=== PATIENT | male | born 1955 | race Caucasian/White ===

== ENCOUNTER 2021-07-22 00:07 | Inpatient (IN) | payer MEDICARE, OTHER ==
[~2021-07-22] VITALS: Ht 182.9 cm; Wt 129.7 kg
[~2021-07-22 00:07] MED LIST: ALBU6.7H9 IH; AMLO5TAB4 PO; ATOR40TA PO; IPRA3AMP23 IH; LEVO500T23 PO; LISI20TA30 PO; MOME13HF2 IH; MONT10TA22 PO; PRED20TA PO
--- NOTE | 2021-07-22 00:15 | NUR ---
BIBRA FROM HOME C/O SOB +WHEEZING +ETOH 1 BREATHING TX DONE. AT TRIAGE SATTING AT 99%. PATIENT ALERT AND ORIENTED X3. AMBULATORY IN BED 06 ON MONITOR AND POX AWAITING MD MCCURDY
[2021-07-22] MEDS ORDERED: VANCOMYCIN 1 GM in IV D5W 250 ML IV ONE (00:30)
[2021-07-22] MEDS ORDERED: methylPREDNISolone SOD SUCC 125 MG/2ML VIAL IV ONE (00:30)
[2021-07-22 00:52] LABS: BASOPHILS # (AUTO) 0.1 K/uL (0.0-0.2); BASOPHILS % (AUTO) 1.4 % (0.0-2.0); EOSINOPHILS % (AUTO) 5.3 % (0.0-6.0); HEMATOCRIT 35 % (39-51); HEMOGLOBIN 12.1 g/dL (13.5-17.5); LYMPHOCYTES # (AUTO) 1.4 K/uL (0.8-4.8); LYMPHOCYTES % (AUTO) 37.3 % (20.0-44.0); MEAN CORPUSCULAR HGB CONC 35 g/dl (31.0-36.0); MEAN CORPUSCULAR VOLUME 97 fL (80-96); MONOCYTES # (AUTO) 0.4 K/uL (0.1-1.30); MONOCYTES % (AUTO) 10.6 % (2.0-12.0); NEUTROPHILS # (AUTO) 1.7 K/uL (1.8-8.9); NEUTROPHILS % (AUTO) 45.4 % (43.0-81.0); PLATELET COUNT (AUTO) 168 K/uL (150-450); RED BLOOD CELL COUNT(AUTO) 3.56 MIL/uL (4.5-6.0); WHITE BLOOD COUNT (AUTO) 3.7 K/uL (4.3-11.0)
[2021-07-22] MEDS ORDERED: methylPREDNISolone SOD SUCC 125 MG/2ML VIAL ONE (00:53)
[2021-07-22] MEDS ORDERED: VANCOMYCIN 1 GM VIAL ONE (00:53)
--- NOTE | 2021-07-22 01:17 | NUR ---
COVID SWAB SENT TO LAB
[2021-07-22 01:18] LABS: ALANINE AMINOTRANSFERASE 21 U/L (12-78); ALBUMIN 3.7 g/dL (3.4-5.0); ALKALINE PHOSPHATASE 50 U/L (46-116); BILIRUBIN,DIRECT 0.1 mg/dL (0.0-0.2); BILIRUBIN,TOTAL 0.4 mg/dL (0.2-1.0); CALCIUM, SERUM 8.4 mg/dL (8.5-10.1); CARBON DIOXIDE 24 mmol/L (21-32); CHLORIDE 86 mmol/L (98-107); CREATININE 0.8 mg/dL (0.6-1.3); GLUCOSE 97 mg/dL (74-106); POTASSIUM 4.2 mmol/L (3.5-5.1); TOTAL PROTEIN, SERUM 6.9 g/dL (6.4-8.2); UREA NITROGEN, BLOOD 6 mg/dL (7-18)
[2021-07-22 01:21] LABS: SODIUM SERUM 120 mmol/L (136-145)
--- NOTE | 2021-07-22 01:21 | NUR ---
CRITICAL LAB Na 120, LA 2.4
[2021-07-22 01:43] LABS: ASPARTATE AMINOTRANSFERASE 28 U/L (15-37)
--- NOTE | 2021-07-22 01:59 | NUR ---
COVID PCR SWAB COLLECTED AND SENT TO LAB
[2021-07-22] MEDS ORDERED: CEFTRIAXONE 1GM BAG (ER ONLY) 1 GM/50 ML PIGGYBACK IV ONE (02:00)
[2021-07-22] MEDS ORDERED: AZITHROMYCIN 500 MG in IV D5W 250 ML IV ONE (02:00)
[2021-07-22] MEDS ORDERED: AZITHROMYCIN 500 MG VIAL ONE (02:14)
[2021-07-22] MEDS ORDERED: CEFTRIAXONE 1GM BAG (ER ONLY) 50 ML IV ONE (02:14)
[2021-07-22] MEDS ORDERED: KETOROLAC TROMETHAMINE INJ 30 MG/ML VIAL ONE (03:26)
[2021-07-22] MEDS ORDERED: KETOROLAC TROMETHAMINE INJ 30 MG/ML VIAL IV ONE (03:30)
--- NOTE | 2021-07-22 04:08 | NUR ---
DR. VILLALOBOS ON PHONE CALL WITH DR. MASTERSON REGARDING ADMISSION
--- NOTE | 2021-07-22 04:10 | NUR ---
LACTIC ACID 2.5
--- NOTE | 2021-07-22 04:21 | NUR ---
URINE COLLECTED SENT TO LAB
[2021-07-22 04:51] LABS: BILIRUBIN,URINE NEGATIVE (NEGATIVE); LEUKOCYTE ESTERASE ,URINE NEGATIVE (NEGATIVE); NITRITE, URINE NEGATIVE (NEGATIVE); PROTEIN,URINE NEGATIVE (NEGATIVE); UGLUCOSE NEGATIVE (NEGATIVE); UROBILINOGEN,URINE 0.2 EU/dL (0.2)
[2021-07-22 04:53] LABS: COLOR,URINE LIGHT YELLOW (YELLOW)
[2021-07-22] MEDS ORDERED: IPRATROPIUM NEB FS 0.5 MG/2.5 ML AMPUL.NEB NEB SCH (05:00)
[2021-07-22] MEDS ORDERED: MAGNESIUM HYDROXIDE 30 ML UDC PO PRN (05:00)
[2021-07-22] MEDS ORDERED: MAG HYDROX/AL HYDROX/SIMETH 30 ML UDC PO PRN (05:00)
[2021-07-22] MEDS ORDERED: ONDANSETRON HCL/PF 4 MG/2 ML VIAL IVP PRN (05:00)
[2021-07-22] MEDS ORDERED: Z GUARD REMEDY 4 OZ OINT TP PRN (05:00)
--- NOTE | 2021-07-22 05:12 | NUR ---
REPORT GIVEN TO IFRAH WALTER
--- NOTE | 2021-07-22 06:20 | NUR ---
PATIENT TRANSFERRED UNDER ACLS
--- NOTE | 2021-07-22 06:35 | NUR ---
RN NOTE RECEIVED CARE OF PATIENT FROM ER NURSE, PATIENT A/O X4, ABLE TO VERBALIZE NEEDS. PATIENT ON O2 THERAPY VIA NC AT 5L/MIN, O2 SAT 98%, NO SOB NOTED, BREATHING EVEN AND UNLABORED. PATIENT ON TELE MONITOR SHOWING SINUS TACH WITH HR OF 104, NO DISTRESS NOTED. PATIENT NOTED WITH L AC# 20, PATENT AND FLUSHING WELL. PATIENT NEEDS ATTENDED TO. NO SIGNIFICANT FINDINGS UPON INITIAL NURSING ASSESSMENTS. SAFETY MEASURES IMPLEMENTED PER HOSPITAL PROTOCOLS. WILL CONTINUE TO MONITOR PATIENT.
--- NOTE | 2021-07-22 07:30 | NUR ---
RN OPENING NOTE PATIENT RECEIVED IN BED, AWAKE, A&OX4. PATIENT ON 6L O2 NC WITH SOME LABORED BREATHING AND AUDIBLE WHEEZING. RIGHT AC SL IV IN PLACE, PATENT AND FLUSHING. PATIENT DOES NOT REPORT NO CHEST PAIN OR DISCOMFORT. NO SIGNS OF ACUTE DISTRESS NOTED AT THIS TIME. BED LOCKED AND IN LOWEST POSITION, CALL LIGHT WITHIN REACH, 2 SIDE RAILS UP. WILL CONTINUE TO MONITOR.
[2021-07-22 08:00] VITALS: BP 133/91
[2021-07-22] MEDS: LISINOPRIL (20MG) 20 MG TABLET PO SCH (08:18)
[2021-07-22] MEDS: ALBUTEROL FS 2.5 MG/3 ML VIAL.NEB NEB SCH ×5 (08:18→23:16)
[2021-07-22] MEDS: IPRATROPIUM NEB FS 0.5 MG/2.5 ML AMPUL.NEB NEB SCH ×5 (08:18→23:16)
[2021-07-22] MEDS: AMLODIPINE BESYLATE 5 MG TABLET PO SCH (08:18)
[2021-07-22] MEDS ORDERED: FUROSEMIDE 40 MG/4 ML VIAL IV SCH (10:30)
[2021-07-22] MEDS: ACETAMINOPHEN 325 MG TABLET PO PRN ×2 (10:46→17:16)
[2021-07-22] MEDS: methylPREDNISolone SOD SUCC 40 MG/ML VIAL IV SCH ×3 (11:35→23:57)
[2021-07-22] MEDS: VANCOMYCIN 1.5 GM in IV D5W 500ml IV SCH ×2 (11:35→22:23)
[2021-07-22 12:00] VITALS: BP 134/78
[2021-07-22 12:26] LABS: CALCIUM, SERUM 9.2 mg/dL (8.5-10.1); CREATININE 1.1 mg/dL (0.6-1.3); POTASSIUM 4.8 mmol/L (3.5-5.1)
--- NOTE | 2021-07-22 12:46 | NUR ---
WOUND CARE CONSULT: REVIEWED CHART, NURSING DOCUMENTATION AND PHOTOS WHICH INDICATE DRY LOWER EXTREMITY WOUNDS WITH REDNESS AND SWELLING,PRESENT ON ADMISSION. DR MARTINEZ NOTIFIED OF DPM CONSULT. MD IN AGREEMENT WITH PLAN OF CARE. CURRENT YINKA SCORE IS 18.
[2021-07-22] MEDS: IV D5/ 0.9% NACL 1,000 ML IV PRN (14:04)
[2021-07-22 14:49] LABS: CREATININE 1.2 mg/dL (0.6-1.3); POTASSIUM 4.4 mmol/L (3.5-5.1)
[2021-07-22 16:00] VITALS: BP 118/77
--- NOTE | 2021-07-22 18:54 | NUR ---
RN CLOSING NOTE PATIENT REMAINS IN BED, AWAKE, A&OX4. PATIENT ON 6L O2 NC WITH SOME LABORED BREATHING AND AUDIBLE WHEEZING. RIGHT AC SL IV IN PLACE RUNNING FLUID ORDERED, PATENT AND FLUSHING. PATIENT DOES NOT REPORT NO CHEST PAIN OR DISCOMFORT. NO SIGNS OF ACUTE DISTRESS NOTED AT THIS TIME. ALL NEEDS ATTENDED DURING SHIFT. BED LOCKED AND IN LOWEST POSITION, CALL LIGHT WITHIN REACH, 2 SIDE RAILS UP. WILL ENDORSE TO SERVICE STATION CONSOLE OPERATOR NURSE.
[2021-07-22] MEDS ORDERED: LORAZEPAM 1 MG TABLET PO PRN (19:00)
--- NOTE | 2021-07-22 19:15 | NUR ---
RN OPENING NOTE RECEIVED CARE OF PATIENT WHILE PATIENT IN BED, A/O X4, ABLE TO VERBALIZE NEEDS. PATIENT EXPRESSES NO DISCOMFORT OR PAIN AT THIS TIME. PATIENT ON O2 THERAPY VIA NC AT 3 L/MIN, MINOR LABORED BREATHING NOTED, BREATHING EVENLY, AUDIBLE WHEEZING NOTED, O2 SAT 92%. PATIENT ON TELE MONITOR SHOWING SINUS TACH WITH HR OF 105, NO DISTRESS NOTED. RIGHT AC SL IV IN PLACE RUNNING FLUID ORDERED, PATENT AND FLUSHING. NO SIGNIFICANT FINDINGS UPON INITIAL NURSING ASSESSMENTS. SAFETY MEASURES IN PLACE ACCORDING TO HOSPITAL PROTOCOLS, BED LOCKED AND IN LOWEST POSITION, CALL LIGHT WITHIN REACH, 2 SIDE RAILS UP, BED ALARM ON. WILL CONTINUE TO MONITOR PATIENT AND WILL CARRY OUT ALL MD ORDERS.
--- NOTE | 2021-07-22 19:20 | NUR ---
RN NOTE RESPIRATORY THERAPIST AT BESIDE FOR PATIENT'S BREATHING TREATMENT. PATIENT TOLERATING TREATMENT WELL. WILL CONTINUE TO MONITOR.
[2021-07-22] MEDS ORDERED: LORAZEPAM 0.5 MG TABLET PO PRN (19:30)
[2021-07-22 20:00] VITALS: BP 113/64
[2021-07-22] MEDS: ATORVASTATIN 40 MG TABLET PO SCH (22:21)
[2021-07-23] VITALS: BP 111/66
[2021-07-23] MEDS: ZOLPIDEM TARTRATE 5 MG TABLET PO PRN ×2 (01:26→23:17)
[2021-07-23] MEDS: CEFTRIAXONE 1 G in IV D5W 50 ML IV SCH (01:26)
[2021-07-23] MEDS: IV D5/ 0.9% NACL 1,000 ML IV PRN ×2 (02:20→18:25)
[2021-07-23] MEDS: ALBUTEROL FS 2.5 MG/3 ML VIAL.NEB NEB SCH ×6 (03:10→23:30)
[2021-07-23] MEDS: IPRATROPIUM NEB FS 0.5 MG/2.5 ML AMPUL.NEB NEB SCH ×6 (03:10→23:30)
[2021-07-23 04:00] VITALS: BP 128/79
[2021-07-23] MEDS: methylPREDNISolone SOD SUCC 40 MG/ML VIAL IV SCH ×4 (05:39→22:33)
--- NOTE | 2021-07-23 06:26 | NUR ---
RN CLOSING NOTES WILL ENDORSE CARE OF PATIENT WHILE PATIENT IN BED, SLEEPING, WAKES TO NAME. A/O X4. ALL PATIENT NEEDS MET THROUGHOUT SHIFT. NO SIGNIFICANT FINDINGS UPON ALL NURSING ASSESSMENTS. ALL DUE MEDS GIVEN. SAFETY PRECAUTIONS IMPLEMENTED PER HOSPITAL PROTOCOLS. WILL ENDORSE TO AM NURSE FOR KULDEEP.
[2021-07-23 07:14] LABS: BASOPHILS % (AUTO) 0.1 % (0.0-2.0); HEMATOCRIT 37 % (39-51); HEMOGLOBIN 12.9 g/dL (13.5-17.5); LYMPHOCYTES # (AUTO) 0.3 K/uL (0.8-4.8); LYMPHOCYTES % (AUTO) 5.3 % (20.0-44.0); MEAN CORPUSCULAR HGB CONC 35 g/dl (31.0-36.0); MEAN CORPUSCULAR VOLUME 98 fL (80-96); MONOCYTES # (AUTO) 0.3 K/uL (0.1-1.30); MONOCYTES % (AUTO) 4.4 % (2.0-12.0); NEUTROPHILS # (AUTO) 5.8 K/uL (1.8-8.9); NEUTROPHILS % (AUTO) 90.2 % (43.0-81.0); PLATELET COUNT (AUTO) 184 K/uL (150-450); RED BLOOD CELL COUNT(AUTO) 3.74 MIL/uL (4.5-6.0); WHITE BLOOD COUNT (AUTO) 6.4 K/uL (4.3-11.0)
--- NOTE | 2021-07-23 07:24 | NUR ---
RN OPENING NOTE PATIENT RECEIVED IN BED, SLEEPING. PATIENT ON 3L O2 NC WITH NO SIGNS OF LABORED BREATHING AT THIS TIME. LEFT AC 20G IV IN PLACE RUNNING D5NS AT 80 CC/HR. NO SIGNS OF ACUTE DISTRESS NOTED AT THIS TIME. BED LOCKED AND IN LOWEST POSITION, CALL LIGHT WITHIN REACH, 3 SIDE RAILS UP. WILL CONTINUE TO MONITOR.
[2021-07-23 07:39] LABS: CALCIUM, SERUM 9.1 mg/dL (8.5-10.1); CREATININE 0.8 mg/dL (0.6-1.3); PHOSPHORUS 3.2 mg/dL (2.5-4.9); POTASSIUM 4.1 mmol/L (3.5-5.1)
[2021-07-23 08:00] VITALS: BP 144/77
[2021-07-23] MEDS: AMLODIPINE BESYLATE 5 MG TABLET PO SCH (08:54)
[2021-07-23] MEDS: LISINOPRIL (20MG) 20 MG TABLET PO SCH (08:54)
[2021-07-23] MEDS: ACETAMINOPHEN 325 MG TABLET PO PRN ×2 (08:57→18:30)
[2021-07-23] MEDS ORDERED: methylPREDNISolone SOD SUCC 40 MG/ML VIAL IV SCH (09:00)
[2021-07-23] MEDS ORDERED: AZITHROMYCIN 250 MG TABLET PO SCH (09:00)
[2021-07-23] MEDS: VANCOMYCIN 1.5 GM in IV D5W 500ml IV SCH ×2 (11:25→22:32)
[2021-07-23 12:00] VITALS: BP 108/59
[2021-07-23 16:00] VITALS: BP 149/75
[2021-07-23 20:00] VITALS: BP 145/76
[2021-07-23] MEDS: ATORVASTATIN 40 MG TABLET PO SCH (22:33)
[2021-07-24] MEDS: IPRATROPIUM NEB FS 0.5 MG/2.5 ML AMPUL.NEB NEB SCH ×3 (03:18→11:30)
[2021-07-24] MEDS: ALBUTEROL FS 2.5 MG/3 ML VIAL.NEB NEB SCH ×3 (03:19→11:30)
[2021-07-24] MEDS: CEFTRIAXONE 1 G in IV D5W 50 ML IV SCH (03:50)
[2021-07-24 04:00] VITALS: BP 144/84
[2021-07-24] MEDS ORDERED: methylPREDNISolone SOD SUCC 40 MG/ML VIAL ONE (05:56)
[2021-07-24] MEDS: IV D5/ 0.9% NACL 1,000 ML IV PRN (06:18)
[2021-07-24] MEDS: methylPREDNISolone SOD SUCC 40 MG/ML VIAL IV SCH (06:19)
--- NOTE | 2021-07-24 07:21 | NUR ---
RN notes Alert and oriented, verbally able to communicate needs. In bed resting comfortably with no distress noted. No complaint of pain or discomfort. Ambulatory with bathroom privilege. Vital signs wnl. No significant change of condition. Needs attended. Kept clean and dry. Will endorse to next shift for continuity of care.
--- NOTE | 2021-07-24 07:42 | NUR ---
MS RN OPENING NOTE PATIENT SLEEPING IN BED, AROUSABLE BY NAME TO A/O X 1. TOLERATING WELL ON 3 LPM O2 VIA CANNULA WITH NO S/S OF RESPIRATORY DISTRESS. L AC #20 INTACT, CLEAN, AND FLUSHING WELL WITH D5 1/2 NS @ 80 ML/HR. NO PAIN OR DISCOMFORT NOTED AT THIS TIME. SAFETY MEASURES IN PLACE: BED IN LOWEST LOCKED POSITION, SIDE RAILS UP X 2, CALL LIGHT WITHIN REACH. WILL CONTINUE TO MONITOR.
[2021-07-24 07:47] LABS: CALCIUM, SERUM 8.6 mg/dL (8.5-10.1); CREATININE 0.8 mg/dL (0.6-1.3)
[2021-07-24] MEDS ORDERED: PRED50TA PO (08:16)
[2021-07-24] MEDS ORDERED: AZIT250T PO (08:16)
[2021-07-24] MEDS ORDERED: CEPH500C2 PO (08:20)
[2021-07-24] MEDS: AMLODIPINE BESYLATE 5 MG TABLET PO SCH (08:42)
[2021-07-24 08:43] VITALS: BP 160/85
[2021-07-24] MEDS: LISINOPRIL (20MG) 20 MG TABLET PO SCH (08:43)
[2021-07-24] MEDS ORDERED: VITAMINS A AND D 56.7 GM TUBE TP SCH (09:00)
--- NOTE | 2021-07-24 09:47 | NUR ---
PATIENT WERE FOUND ON ROOM AIR BEFORE TREATMENT. I CHECKED WITH RN AND WAS INFORMED THAT PATIENT WAS ON 3 L O2. PATIENT WERE PLACED BACK ON 3 L O2 IN STABLE STATE AND ALERT AFTER TREATMENT. Addendum: 07/24/21 at 0951 by VISHAL BOTELLO RT Amended: Links added.
[2021-07-24] MEDS: VANCOMYCIN 1.5 GM in IV D5W 500ml IV SCH ×2 (10:47→11:00)
--- NOTE | 2021-07-24 11:30 | NUR ---
MS OYSTER GRADER NOTE PATIENT MADE AWARE OF MD DISCHARGE INSTRUCTIONS, VERBALIZED UNDERSTANDING AND SIGNED ORDERS SHEET. PATIENT CONFIRMED POSSESSION OF ALL BELONGINGS VERBALLY AND SIGNED BELONGINGS SHEET. VITAL SIGNS STABLE. ALL DISCHARGE INSTRUCTIONS, EDUCATION, AND LAB RESULTS PROVIDED TO PATIENT. INSTRUCTIONS PROVIDED ON WOUND CARE FOLLOW UP AND SUPPLIES GIVEN. IV LINE REMOVED. PATIENT AMBULATED OFF OF UNIT TO [facility].
--- NOTE | 2021-07-24 12:10 | NUR ---
PATIENT REFUSED TREATMENT. PATIENT APPEARED WITHOUT DISTRESS AND NO SOB. Addendum: 07/24/21 at 1213 by VISHAL BOTELLO RT Amended: Links added.
== END 2021-07-24 12:00 | disposition home or self-care (01) | DRG 602 ==
LOC: ER 00:14 → TELE1 04:49 → MEDSG1 07-23 10:18
PROVIDERS: ADMIT Internal Medicine; ATTEND Internal Medicine
DX: L03.115 Cellulitis of right lower limb (principal); J15.9 Unspecified bacterial pneumonia; J44.1 Chronic obstructive pulmonary disease with (acute) exacerbation; E87.2 Acidosis; J98.11 Atelectasis; E87.1 Hypo-osmolality and hyponatremia; J44.0 Chronic obstructive pulmonary disease with (acute) lower respiratory infection; E66.01 Morbid (severe) obesity due to excess calories; E87.70 Fluid overload, unspecified; E78.5 Hyperlipidemia, unspecified; F17.210 Nicotine dependence, cigarettes, uncomplicated; F41.9 Anxiety disorder, unspecified; I10 Essential (primary) hypertension; L85.3 Xerosis cutis; Z20.822 Contact with and (suspected) exposure to COVID-19; G47.33 Obstructive sleep apnea (adult) (pediatric); Z87.01 Personal history of pneumonia (recurrent); Z71.6 Tobacco abuse counseling; Z68.38 Body mass index [BMI] 38.0-38.9, adult; M79.671 Pain in right foot; Z83.3 Family history of diabetes mellitus; Z79.51 Long term (current) use of inhaled steroids; S91.301A Unspecified open wound, right foot, initial encounter; X58.XXXA Exposure to other specified factors, initial encounter; Y93.9 Activity, unspecified; Y92.009 Unspecified place in unspecified non-institutional (private) residence as the place of occurrence of the external cause
CPT/HCPCS: 36415; 71045-TC; 80048-TC; 80076-TC; 80202-TC; 82962-TC; 83605-TC; 83735-TC; 83880; 84100-TC; 84484-TC; 85025-TC; 87040-TC; 93307-TC; 93970-TC; 94799-TC; 97116-TC; 97530-TC; C9803; G0378; J0456; J0696; J1885; J1940; J2920; J2930; J3370; J7030; J7042; J7050; J7060; U0003

== ENCOUNTER 2021-10-18 21:03 | Emergency (ER) | payer MEDICARE, OTHER ==
[~2021-10-18] VITALS: Ht 182.9 cm; Wt 132.9 kg
[~2021-10-18 21:03] MED LIST changes: +CEPH500C2 PO; -LEVO500T23 PO; -PRED20TA PO; +PRED50TA PO
--- NOTE | 2021-10-18 21:09 | NUR ---
BIBRA88 FROM HOME FOR UNWIT MECHANICAL SLIP AND FALL +HEADTRUAMA -KO +SKIN TARES. TDAP UTD. +LEG WEAKNESS +ASPIRIN. PATIENT ALERT AND ORIENTED X4. AMBULATORY WITH CANE BUT BROUGHT IN BY STRETCHER. IN BED 03 SEEN BY MD AT TRIAGE.
--- NOTE | 2021-10-19 04:00 | NUR ---
PT SLEEPING COMOFERTBALY BREATHING EVEN AND UNLABORED. REMAINS ON MONITOR AND V/S WNL
[2021-10-19 06:09] VITALS: BP 102/59
--- NOTE | 2021-10-19 06:09 | NUR ---
Patient discharged to home in stable condition. Written and verbal after care instructions given. Patient verbalizes understanding of instruction.
== END 2021-10-19 06:09 | disposition home or self-care (01) ==
LOC: ER 21:05
DX: S51.011A Laceration without foreign body of right elbow, initial encounter (principal); F10.129 Alcohol abuse with intoxication, unspecified; I10 Essential (primary) hypertension; F17.200 Nicotine dependence, unspecified, uncomplicated; Z79.899 Other long term (current) drug therapy; Y90.9 Presence of alcohol in blood, level not specified; W07.XXXA Fall from chair, initial encounter; Y93.89 Activity, other specified; Y92.89 Other specified places as the place of occurrence of the external cause; Y99.8 Other external cause status
CPT/HCPCS: 70450-TC; 72125-TC

== ENCOUNTER 2022-07-29 11:00 | Emergency (ER) | payer MEDICARE, OTHER ==
[~2022-07-29] VITALS: Ht 182.9 cm; Wt 122.5 kg
[2022-07-29] MEDS ORDERED: LIDOCAINE 1% INJ 50 ML MDV IJ ONE (11:56)
[2022-07-29] MEDS ORDERED: LIDOCAINE HCL/PF 1% 30 ML VIAL TP ONE (12:00)
[2022-07-29] MEDS ORDERED: BACI/NEOM/POLY B OINT PKT 1 UDPKT PACKET TP ONE (12:00)
[2022-07-29] MEDS ORDERED: TDAP [DIPH/PERTUSSIS/TET] 0.5 ML VIAL IM ONE ×2 (12:00→12:07)
[2022-07-29] MEDS ORDERED: CEPH500C2 PO (12:45)
[2022-07-29 13:31] VITALS: BP 102/62
== END 2022-07-29 13:32 | disposition home or self-care (01) ==
LOC: ER 11:03
DX: S81.811A Laceration without foreign body, right lower leg, initial encounter (principal); I10 Essential (primary) hypertension; Z98.890 Other specified postprocedural states; F17.200 Nicotine dependence, unspecified, uncomplicated; Z60.2 Problems related to living alone; Z79.899 Other long term (current) drug therapy; W19.XXXA Unspecified fall, initial encounter; Y93.89 Activity, other specified; Y92.89 Other specified places as the place of occurrence of the external cause; Y99.0 Civilian activity done for income or pay
CPT/HCPCS: 99283; 12004; 90471; 90715; J3490 ×2; A6403

== ENCOUNTER 2022-08-09 07:28 | Emergency (ER) | payer MEDICARE, OTHER ==
[~2022-08-09] VITALS: Ht 182.9 cm; Wt 117.9 kg
[2022-08-09 07:41] VITALS: BP 118/69
--- NOTE | 2022-08-09 08:12 | NUR ---
AT BEDSIDE FOR EVAL
[2022-08-09] MEDS ORDERED: BENZOIN COMPOUND TINCT 60 ML BOTTLE ONE (08:19)
[2022-08-09] MEDS ORDERED: CEPH500C2 PO (08:54)
--- NOTE | 2022-08-09 08:57 | NUR ---
Patient discharged to home in stable condition. Written and verbal after care instructions given. Patient verbalizes understanding of instruction.
== END 2022-08-09 08:57 | disposition home or self-care (01) ==
LOC: ER 07:34
DX: S81.811D Laceration without foreign body, right lower leg, subsequent encounter (principal); I10 Essential (primary) hypertension; F17.200 Nicotine dependence, unspecified, uncomplicated; Z98.890 Other specified postprocedural states; Z60.2 Problems related to living alone; Z79.899 Other long term (current) drug therapy; X58.XXXD Exposure to other specified factors, subsequent encounter

== ENCOUNTER 2022-08-24 10:43 | Emergency (ER) | payer MEDICARE, OTHER ==
[~2022-08-24] VITALS: Ht 182.9 cm; Wt 122.5 kg
--- NOTE | 2022-08-24 10:55 | NUR ---
RECEIVED PT 67 YRS MALE CAME FROM HOME S/P FALL DOWN AT HOME SKIN ABRATION ON FOR HEAD AND OPEN LAUCERATION UPPER LIPS NO ACTIVE BLEEDING AT THIS TIME
--- NOTE | 2022-08-24 11:40 | NUR ---
SEEN BY DR. MEMBRENO
--- NOTE | 2022-08-24 11:50 | NUR ---
TO CT SCAN OF HEAD AND FACE
--- NOTE | 2022-08-24 12:18 | NUR ---
CALLED [facility] [phone] ROSMERY WALTER CURRENTLY AT [facility]. ONLY OPEN TO PEDS AND STEMI AT THIS TIME.
--- NOTE | 2022-08-24 13:09 | NUR ---
CALLED [facility] [phone] FAXED FACESHEET & CLINICALS TO [phone] ATTN JOSE.
[2022-08-24] MEDS ORDERED: MORPHINE SULFATE INJ 2 MG/ML DISP.SYRIN IV ONE (13:30)
[2022-08-24] MEDS ORDERED: MORPHINE SULFATE INJ 4 MG/ML DISP.SYRIN ONE (13:49)
[2022-08-24 14:22] LABS: CREATININE 0.8 mg/dL (0.6-1.3); POTASSIUM 3.8 mmol/L (3.5-5.1)
--- NOTE | 2022-08-24 14:30 | NUR ---
COVID SWAB SENT TO LAB
--- NOTE | 2022-08-24 15:02 | NUR ---
CALLED [facility] [phone] DERRELL WILL TAKE INTAKE BUT FULL [place].
[2022-08-24 15:21] LABS: BASOPHILS % (AUTO) 0.3 % (0.0-2.0); EOSINOPHILS % (AUTO) 0.8 % (0.0-6.0); HEMATOCRIT 38 % (39-51); HEMOGLOBIN 12.6 g/dL (13.5-17.5); LYMPHOCYTES # (AUTO) 0.6 K/uL (0.8-4.8); LYMPHOCYTES % (AUTO) 8.9 % (20.0-44.0); MEAN CORPUSCULAR HGB CONC 33 g/dl (31.0-36.0); MEAN CORPUSCULAR VOLUME 108 fL (80-96); MONOCYTES # (AUTO) 0.6 K/uL (0.1-1.30); MONOCYTES % (AUTO) 9.3 % (2.0-12.0); NEUTROPHILS # (AUTO) 5.2 K/uL (1.8-8.9); NEUTROPHILS % (AUTO) 80.7 % (43.0-81.0); PLATELET COUNT (AUTO) 185 K/uL (150-450); RED BLOOD CELL COUNT(AUTO) 3.49 MIL/uL (4.5-6.0); WHITE BLOOD COUNT (AUTO) 6.4 K/uL (4.3-11.0)
[2022-08-24] MEDS ORDERED: AMOX-430 PO (15:55)
--- NOTE | 2022-08-24 16:00 | NUR ---
CALLED [facility] [phone] [employer] FAXING CLINICALS TO [facility], DR. BELLA ACCEPTS PT. GOING ER TO ER DR. TRACEY SPEAKING WITH DR. MEMBRENO.
--- NOTE | 2022-08-24 16:08 | NUR ---
PT ACCEPTED TO [facility] UNDER DR. JATIN TRACEY. PLEASE CALL [phone] FOR REPORT.
--- NOTE | 2022-08-24 16:11 | NUR ---
CALLED [facility] FOR TRANSPORT ETA 45 MINS.
[2022-08-24] MEDS ORDERED: NICOTINE PATCH (7MG) 7 MG PATCH.TD24 TD SCH (16:30)
--- NOTE | 2022-08-24 16:40 | NUR ---
NICOTINE PATCH APPLED ON CHEST WALL
--- NOTE | 2022-08-24 16:55 | NUR ---
CALLED CONDITION UP DATE (BOLA
[2022-08-24 17:18] LABS: LYMPHOCYTES % (MANUAL) 9 % (16-48); MONOCYTES % (MANUAL) 10 % (0-11.0); NEUTROPHILS % (MANUAL) 81 (42-76)
--- NOTE | 2022-08-24 17:25 | NUR ---
HAND OFF POOJA.Carmelita RN TO [facility] ED ACCEPTING MD DR. MINDA APARICIO MD
[2022-08-24 17:30] VITALS: BP 110/70
--- NOTE | 2022-08-24 17:40 | NUR ---
TRANSFER TO [facility] BY [facility]
== END 2022-08-24 17:49 | disposition short-term general hospital (02) ==
LOC: ER 10:47
DX: S01.511A Laceration without foreign body of lip, initial encounter (principal); I10 Essential (primary) hypertension; F17.200 Nicotine dependence, unspecified, uncomplicated; Z79.899 Other long term (current) drug therapy; Z98.890 Other specified postprocedural states; Z60.2 Problems related to living alone; Z20.822 Contact with and (suspected) exposure to COVID-19; W18.30XA Fall on same level, unspecified, initial encounter; Y93.89 Activity, other specified; Y92.89 Other specified places as the place of occurrence of the external cause; Y99.8 Other external cause status
CPT/HCPCS: 99291; 72125; 96374; 87426; 70450; 70486; 85025; 80048; 36415; 85730; 85007; J2270; A6403; C9803

== ENCOUNTER 2023-03-13 05:12 | Emergency (ER) | payer MEDICARE, OTHER ==
[~2023-03-13] VITALS: Ht 182.9 cm; Wt 99.8 kg
[~2023-03-13 05:12] MED LIST changes: +AMOX-430 PO
[2023-03-13 06:50] VITALS: BP 121/76; TEMP 98.1; O2SAT 99
== END 2023-03-13 06:51 | disposition home or self-care (01) ==
LOC: ER 05:15
DX: H10.9 Unspecified conjunctivitis (principal); I10 Essential (primary) hypertension; J44.9 Chronic obstructive pulmonary disease, unspecified; F17.200 Nicotine dependence, unspecified, uncomplicated; Z60.2 Problems related to living alone; Z79.899 Other long term (current) drug therapy

== ENCOUNTER 2024-05-22 23:51 | Inpatient (IN) | payer MEDICARE, OTHER ==
[~2024-05-22] VITALS: Ht 182.9 cm; Wt 99.9 kg
[2024-05-23] VITALS (13 sets, daily range): BP systolic 128–155; BP diastolic 72–86; TEMP 97.5–98.7; O2SAT 90–100
[2024-05-23] MEDS ORDERED: methylPREDNISolone SOD SUCC 125 MG/2ML VIAL ONE (00:08)
[2024-05-23] MEDS ORDERED: Magnesium 1GM/D5W 100ML PREMIX 100 ML IV ONE (00:08)
[2024-05-23 00:13] LABS: BASOPHILS # (AUTO) 0.1 K/uL (0.0-0.2); BASOPHILS % (AUTO) 0.4 % (0.0-2.0); EOSINOPHILS # (AUTO) 0.1 K/uL (0.0-0.7); EOSINOPHILS % (AUTO) 0.6 % (0.0-6.0); HEMATOCRIT 34 % (39-51); HEMOGLOBIN 11.9 g/dL (13.5-17.5); LYMPHOCYTES # (AUTO) 1.7 K/uL (0.8-4.8); LYMPHOCYTES % (AUTO) 10.9 % (20.0-44.0); MEAN CORPUSCULAR HEMOGLOBIN 35 PG (26.0-33.0); MEAN CORPUSCULAR HGB CONC 35 g/dl (31.0-36.0); MEAN CORPUSCULAR VOLUME 100 fL (80-96); MONOCYTES # (AUTO) 1.4 K/uL (0.1-1.30); MONOCYTES % (AUTO) 8.9 % (2.0-12.0); NEUTROPHILS # (AUTO) 12.1 K/uL (1.8-8.9); NEUTROPHILS % (AUTO) 79.2 % (43.0-81.0); PLATELET COUNT (AUTO) 222 K/uL (150-450); RED BLOOD CELL COUNT(AUTO) 3.43 MIL/uL (4.5-6.0); RED CELL DISTRIBUTION WIDTH 13.5 % (11.5-15.0); WHITE BLOOD COUNT (AUTO) 15.3 K/uL (4.3-11.0)
[2024-05-23] MEDS ORDERED: ALBUTEROL FS 2.5 MG/3 ML VIAL.NEB ONE ×2 (00:17→07:32)
[2024-05-23] MEDS ORDERED: IPRATROPIUM NEB FS 0.5 MG/2.5 ML AMPUL.NEB ONE ×2 (00:17→07:32)
[2024-05-23 00:20] LABS: CALCIUM, SERUM 8.6 mg/dL (8.5-10.1); CARBON DIOXIDE 28 mmol/L (21-32); CHLORIDE 82 mmol/L (98-107); CREATININE 0.7 mg/dL (0.6-1.3); GLUCOSE 114 mg/dL (74-106); POTASSIUM 4.3 mmol/L (3.5-5.1); UREA NITROGEN, BLOOD 7 mg/dL (7-18)
[2024-05-23] MEDS: Magnesium 1GM/D5W 100ML PREMIX 200 ML IV ONE (00:21)
[2024-05-23] MEDS: methylPREDNISolone SOD SUCC 125 MG/2ML VIAL IV ONE (00:21)
[2024-05-23] MEDS: IPRATROPIUM NEB FS 0.5 MG/2.5 ML AMPUL.NEB NEB ONE (00:24)
[2024-05-23] MEDS ORDERED: oxyCODONE/APAP (5/325 MG) 1 UDTAB TABLET ONE (00:24)
[2024-05-23] MEDS: ALBUTEROL FS 2.5 MG/3 ML VIAL.NEB CONTNEB ONE (00:24)
[2024-05-23 00:27] LABS: SODIUM SERUM 118 mmol/L (136-145)
[2024-05-23] MEDS: oxyCODONE/APAP (5/325 MG) 1 UDTAB TABLET PO ONE (00:30)
[2024-05-23 00:33] LABS: ALANINE AMINOTRANSFERASE 24 U/L (12-78); ALBUMIN 3.2 g/dL (3.4-5.0); ALKALINE PHOSPHATASE 131 U/L (46-116); ASPARTATE AMINOTRANSFERASE 43 U/L (15-37); BILIRUBIN,DIRECT 0.2 mg/dL (0.0-0.2); BILIRUBIN,TOTAL 0.8 mg/dL (0.2-1.0); NT-PRO BNP 239 pg/mL (0-125); TOTAL PROTEIN, SERUM 7.7 g/dL (6.4-8.2)
[2024-05-23] MEDS ORDERED: LORAZEPAM INJ 2 MG/ML VIAL ONE (01:12)
[2024-05-23] MEDS: LORAZEPAM INJ 2 MG/ML VIAL IV ONE (01:16)
[2024-05-23] MEDS ORDERED: IPRATROPIUM NEB FS 0.5 MG/2.5 ML AMPUL.NEB NEB SCH (01:30)
[2024-05-23] MEDS ORDERED: LEVOFLOXACIN 750 MG /D5W 150ML 750 MG in PREMIX 1 EA IV SCH ×2 (01:30→03:00)
[2024-05-23] MEDS ORDERED: ALBUTEROL FS 2.5 MG/3 ML VIAL.NEB NEB SCH (01:30)
[2024-05-23] MEDS ORDERED: MAGNESIUM HYDROXIDE 30 ML UDC PO PRN ×2 (01:30→03:00)
[2024-05-23] MEDS ORDERED: MAG HYDROX/AL HYDROX/SIMETH 30 ML UDC PO PRN ×2 (01:30→03:00)
[2024-05-23] MEDS ORDERED: HYDROCODONE/APAP 10/325MG TABLET PO PRN (01:30)
[2024-05-23] MEDS ORDERED: ACETAMINOPHEN 325 MG TABLET PO PRN (01:30)
[2024-05-23] MEDS ORDERED: IV NS 0.9% 1,000 ML BAG IV ONE ×2 (01:30)
[2024-05-23] MEDS ORDERED: Z GUARD REMEDY 4 OZ OINT TP PRN ×2 (01:30→03:00)
[2024-05-23] MEDS ORDERED: FUROSEMIDE 40 MG/4 ML VIAL IV ONE ×2 (01:30)
[2024-05-23 02:46] LABS: ABG BASE EXCESS 0.9 mmol/L (-2.0-3.0); ABG OXYGEN SATURATION 86.7 % (94.0-98.0); ABG PCO2 38.3 mmHg (35.0-48.0); ABG PH 7.434 (7.350-7.450); ABG TOTAL HEMOGLOBIN 12.2 G/dL (13.5-17.5); COHb 0.3 % (0.5-1.5); MetHb 0.3 % (0.0-1.5); O2Hb 86.2 % (94.0-97.0); SITE, ABG RIGHT RADIAL
[2024-05-23] MEDS ORDERED: methylPREDNISolone SOD SUCC 40 MG/ML VIAL IV SCH (05:00)
[2024-05-23 06:12] LABS: CALCIUM, SERUM 8.7 mg/dL (8.5-10.1); CREATININE 0.7 mg/dL (0.6-1.3); POTASSIUM 3.9 mmol/L (3.5-5.1)
[2024-05-23] MEDS: IPRATROPIUM NEB FS 0.5 MG/2.5 ML AMPUL.NEB NEB SCH (07:29)
[2024-05-23] MEDS: ALBUTEROL FS 2.5 MG/3 ML VIAL.NEB NEB SCH (07:29)
[2024-05-23] MEDS ORDERED: METO-357 PO (08:43)
[2024-05-23] MEDS ORDERED: ALBU2.5V38 IH (08:43)
[2024-05-23] MEDS ORDERED: BREZTRI IH (08:43)
[2024-05-23] MEDS ORDERED: DICL100G34 TP (08:43)
[2024-05-23] MEDS ORDERED: NICOTINE PATCH (14MG) 14 MG PATCH.TD24 TD SCH (09:00)
[2024-05-23] MEDS ORDERED: LISINOPRIL (20MG) 20 MG TABLET PO SCH (09:00)
[2024-05-23] MEDS ORDERED: AMLODIPINE BESYLATE 5 MG TABLET PO SCH (09:00)
[2024-05-23] MEDS ORDERED: ENOXAPARIN SODIUM 40 MG/0.4 ML DISP.SYRIN SQ SCH (09:00)
[2024-05-23] MEDS: methylPREDNISolone SOD SUCC 40 MG/ML VIAL IV SCH (09:09)
[2024-05-23] MEDS: LEVOFLOXACIN (250MG) 250 MG TABLET PO SCH ×2 (09:11→15:00)
[2024-05-23] MEDS: LISINOPRIL (20MG) 20 MG TABLET PO SCH (09:12)
[2024-05-23] MEDS: AMLODIPINE BESYLATE 5 MG TABLET PO SCH (09:12)
[2024-05-23] MEDS: NICOTINE PATCH (14MG) 14 MG PATCH.TD24 TD SCH (09:13)
[2024-05-23] MEDS: ENOXAPARIN SODIUM 40 MG/0.4 ML DISP.SYRIN SQ SCH (09:17)
[2024-05-23] MEDS: HYDROCODONE/APAP 10/325MG TABLET PO PRN (10:03)
[2024-05-23] MEDS: MORPHINE SULFATE INJ 2 MG/ML DISP.SYRIN IV PRN (11:54)
[2024-05-23] MEDS: SODIUM CHLORIDE 1000 MG TABLET PO SCH (12:02)
[2024-05-23] MEDS: CEFEPIME 2 GM in IV D5W 100 ML IV SCH (13:55)
[2024-05-23 18:18] LABS: MAGNESIUM 1.7 mg/dL (1.8-2.4); PHOSPHORUS 3.1 mg/dL (2.5-4.9)
[2024-05-23] MEDS: ACETAMINOPHEN 325 MG TABLET PO PRN (19:58)
[2024-05-23] MEDS: MONTELUKAST SODIUM (10MG) 10 MG TABLET PO SCH (21:41)
[2024-05-23] MEDS: ATORVASTATIN 40 MG TABLET PO SCH (21:41)
[2024-05-23] MEDS ORDERED: MONTELUKAST SODIUM (10MG) 10 MG TABLET PO SCH (22:00)
[2024-05-23] MEDS ORDERED: ATORVASTATIN 40 MG TABLET PO SCH (22:00)
[2024-05-24] VITALS (15 sets, daily range): BP systolic 118–130; BP diastolic 64–86; TEMP 97.7–98.6; O2SAT 87–98
[2024-05-24] MEDS ORDERED: LIDOCAINE 5% (PATCH) 1 EA PATCH TP ONE (00:10)
[2024-05-24] MEDS: LIDOCAINE 5% (PATCH) 1 EA PATCH TP SCH (00:29)
[2024-05-24 03:21] LABS: CALCIUM, SERUM 9.3 mg/dL (8.5-10.1); CREATININE 0.8 mg/dL (0.6-1.3); POTASSIUM 3.7 mmol/L (3.5-5.1)
[2024-05-24 06:57] LABS: THYROID STIMULATING HORMONE 0.52 uIU/mL (0.358-3.74)
[2024-05-24] MEDS: UREA 10% -AHA 4% CREAM 57 GM TUBE TP SCH (12:24)
[2024-05-24 12:25] LABS: URINE SODIUM, RANDOM 34 mmol/l (40-220)
[2024-05-24] MEDS: diphenhydrAMINE HCL 25 MG CAPSULE PO PRN (12:28)
[2024-05-24] MEDS: IVERMECTIN 3 MG TABLET PO ONE (12:29)
[2024-05-24] MEDS ORDERED: ALBUTEROL SULFATE 8 GM HFA.AER.AD IH PRN (12:30)
[2024-05-24 12:58] LABS: BASOPHILS % (AUTO) 0.1 % (0.0-2.0); HEMATOCRIT 33 % (39-51); HEMOGLOBIN 11.1 g/dL (13.5-17.5); LYMPHOCYTES # (AUTO) 0.2 K/uL (0.8-4.8); MEAN CORPUSCULAR HEMOGLOBIN 35 PG (26.0-33.0); MEAN CORPUSCULAR HGB CONC 34 g/dl (31.0-36.0); MEAN CORPUSCULAR VOLUME 103 fL (80-96); MONOCYTES # (AUTO) 0.6 K/uL (0.1-1.30); MONOCYTES % (AUTO) 5.2 % (2.0-12.0); NEUTROPHILS # (AUTO) 10.5 K/uL (1.8-8.9); NEUTROPHILS % (AUTO) 92.7 % (43.0-81.0); PLATELET COUNT (AUTO) 184 K/uL (150-450); RED BLOOD CELL COUNT(AUTO) 3.15 MIL/uL (4.5-6.0); RED CELL DISTRIBUTION WIDTH 13.6 % (11.5-15.0); WHITE BLOOD COUNT (AUTO) 11.3 K/uL (4.3-11.0)
[2024-05-24 13:24] LABS: CALCIUM, SERUM 9.1 mg/dL (8.5-10.1); POTASSIUM 3.8 mmol/L (3.5-5.1)
[2024-05-24 13:43] LABS: URIC ACID 4.3 mg/dL (2.6-7.2)
[2024-05-24] MEDS: PERMETHRIN 5% CRM 60 GM TUBE TP ONE (22:07)
[2024-05-24] MEDS: MORPHINE SULFATE INJ 2 MG/ML DISP.SYRIN IV PRN (22:08)
[2024-05-25] VITALS (16 sets, daily range): BP systolic 116–150; BP diastolic 66–74; TEMP 97.5–98.6; O2SAT 91–98
[2024-05-25 07:25] LABS: ALBUMIN 2.4 g/dL (3.4-5.0); BILIRUBIN,TOTAL 0.5 mg/dL (0.2-1.0); CALCIUM, SERUM 8.9 mg/dL (8.5-10.1); CREATININE 0.9 mg/dL (0.6-1.3); MAGNESIUM 1.8 mg/dL (1.8-2.4); PHOSPHORUS 3.4 mg/dL (2.5-4.9); POTASSIUM 4.1 mmol/L (3.5-5.1); TOTAL PROTEIN, SERUM 6.9 g/dL (6.4-8.2)
[2024-05-25 07:59] LABS: HEMATOCRIT 29 % (39-51); HEMOGLOBIN 10.1 g/dL (13.5-17.5); LYMPHOCYTES # (AUTO) 0.2 K/uL (0.8-4.8); LYMPHOCYTES % (AUTO) 2.1 % (20.0-44.0); MEAN CORPUSCULAR HEMOGLOBIN 35 PG (26.0-33.0); MEAN CORPUSCULAR HGB CONC 35 g/dl (31.0-36.0); MEAN CORPUSCULAR VOLUME 101 fL (80-96); MONOCYTES # (AUTO) 0.6 K/uL (0.1-1.30); MONOCYTES % (AUTO) 7.2 % (2.0-12.0); NEUTROPHILS # (AUTO) 7.2 K/uL (1.8-8.9); NEUTROPHILS % (AUTO) 90.7 % (43.0-81.0); PLATELET COUNT (AUTO) 172 K/uL (150-450); RED BLOOD CELL COUNT(AUTO) 2.87 MIL/uL (4.5-6.0); RED CELL DISTRIBUTION WIDTH 13.3 % (11.5-15.0)
[2024-05-25] MEDS: SOD FERRIC GLUC 125 MG in IV NS 0.9% 100 ML IV SCH (14:46)
[2024-05-25] MEDS: ALBUTEROL FS 2.5 MG/0.5 ML VIAL.NEB HHN PRN (15:51)
[2024-05-25] MEDS: IPRATROPIUM NEB FS 0.5 MG/2.5 ML AMPUL.NEB NEB PRN (15:51)
[2024-05-25] MEDS ORDERED: LORAZEPAM 1 MG TABLET PO PRN (17:00)
[2024-05-26] VITALS (15 sets, daily range): BP systolic 140–170; BP diastolic 70–88; TEMP 97.5–98.1; O2SAT 84–100
[2024-05-26 09:02] LABS: CALCIUM, SERUM 9.3 mg/dL (8.5-10.1); CREATININE 0.7 mg/dL (0.6-1.3); POTASSIUM 3.8 mmol/L (3.5-5.1)
[2024-05-26] MEDS ORDERED: ALPRAZOLAM 0.25 MG TABLET PO PRN (11:00)
[2024-05-26] MEDS: methylPREDNISolone SOD SUCC 40 MG/ML VIAL IV SCH (11:37)
[2024-05-26] MEDS: ALBUTEROL FS 2.5 MG/3 ML VIAL.NEB NEB SCH (13:55)
[2024-05-27] VITALS (11 sets, daily range): BP systolic 125–150; BP diastolic 80–96; TEMP 97.5–98.6; O2SAT 91–99
[2024-05-27 14:09] LABS: *SPE A/G RATIO 0.7 (0.7-1.7); *SPE ALBUMIN 2.8 g/dL (2.9-4.4); *SPE ALPHA-1-GLOBULIN 0.5 g/dL (0.0-0.4); *SPE ALPHA-2-GLOBULIN 0.8 g/dL (0.4-1.0); *SPE BETA GLOBULIN 1.2 g/dL (0.7-1.3); *SPE M-SPIKE 0.3 g/dL (Not Observed); *SPE PROTEIN TOTAL 6.8 g/dL (6.0-8.5); *SPEGAMMA GLOBULIN 1.5 g/dL (0.4-1.8)
[2024-05-28] VITALS (11 sets, daily range): BP systolic 128–138; BP diastolic 80–83; TEMP 97.5–97.8; O2SAT 93–98
[2024-05-29] VITALS (11 sets, daily range): BP systolic 108–153; BP diastolic 73–86; TEMP 97.9–98.2; O2SAT 93–97
[2024-05-29 07:46] LABS: BASOPHILS % (AUTO) 0.1 % (0.0-2.0); EOSINOPHILS % (AUTO) 0.1 % (0.0-6.0); HEMATOCRIT 29 % (39-51); HEMOGLOBIN 10.4 g/dL (13.5-17.5); LYMPHOCYTES # (AUTO) 0.6 K/uL (0.8-4.8); LYMPHOCYTES % (AUTO) 11.9 % (20.0-44.0); MEAN CORPUSCULAR HEMOGLOBIN 35 PG (26.0-33.0); MEAN CORPUSCULAR HGB CONC 35 g/dl (31.0-36.0); MEAN CORPUSCULAR VOLUME 99 fL (80-96); MONOCYTES # (AUTO) 0.6 K/uL (0.1-1.30); MONOCYTES % (AUTO) 13.8 % (2.0-12.0); NEUTROPHILS # (AUTO) 3.5 K/uL (1.8-8.9); NEUTROPHILS % (AUTO) 74.1 % (43.0-81.0); PLATELET COUNT (AUTO) 181 K/uL (150-450); RED BLOOD CELL COUNT(AUTO) 2.96 MIL/uL (4.5-6.0); RED CELL DISTRIBUTION WIDTH 13.3 % (11.5-15.0); WHITE BLOOD COUNT (AUTO) 4.7 K/uL (4.3-11.0)
[2024-05-29 08:03] LABS: CALCIUM, SERUM 8.5 mg/dL (8.5-10.1); CREATININE 0.5 mg/dL (0.6-1.3); POTASSIUM 3.5 mmol/L (3.5-5.1)
[2024-05-29] MEDS: predniSONE 20 MG TABLET PO SCH (10:12)
[2024-05-30] VITALS (9 sets, daily range): BP systolic 117–137; BP diastolic 75–83; TEMP 97.5–98; O2SAT 93–99
[2024-05-30 07:26] LABS: BASOPHILS % (AUTO) 0.1 % (0.0-2.0); EOSINOPHILS # (AUTO) 0.1 K/uL (0.0-0.7); EOSINOPHILS % (AUTO) 1.1 % (0.0-6.0); HEMATOCRIT 29 % (39-51); HEMOGLOBIN 10.2 g/dL (13.5-17.5); LYMPHOCYTES # (AUTO) 0.8 K/uL (0.8-4.8); LYMPHOCYTES % (AUTO) 16.2 % (20.0-44.0); MEAN CORPUSCULAR HEMOGLOBIN 35 PG (26.0-33.0); MEAN CORPUSCULAR HGB CONC 35 g/dl (31.0-36.0); MEAN CORPUSCULAR VOLUME 100 fL (80-96); MONOCYTES # (AUTO) 0.6 K/uL (0.1-1.30); MONOCYTES % (AUTO) 12.2 % (2.0-12.0); NEUTROPHILS # (AUTO) 3.4 K/uL (1.8-8.9); NEUTROPHILS % (AUTO) 70.4 % (43.0-81.0); PLATELET COUNT (AUTO) 177 K/uL (150-450); RED BLOOD CELL COUNT(AUTO) 2.92 MIL/uL (4.5-6.0); RED CELL DISTRIBUTION WIDTH 13.3 % (11.5-15.0); WHITE BLOOD COUNT (AUTO) 4.8 K/uL (4.3-11.0)
[2024-05-30 08:11] LABS: CALCIUM, SERUM 8.4 mg/dL (8.5-10.1); CREATININE 0.5 mg/dL (0.6-1.3); POTASSIUM 3.4 mmol/L (3.5-5.1)
[2024-05-30] MEDS: POTASSIUM CHLORIDE 20 MEQ TAB.PRT.SR PO SCH (10:43)
[2024-05-31] VITALS (11 sets, daily range): BP systolic 110–140; BP diastolic 67–70; TEMP 97.5–98.1; O2SAT 93–99
[2024-05-31 06:56] LABS: BASOPHILS % (AUTO) 0.1 % (0.0-2.0); EOSINOPHILS # (AUTO) 0.1 K/uL (0.0-0.7); EOSINOPHILS % (AUTO) 1.1 % (0.0-6.0); HEMATOCRIT 30 % (39-51); HEMOGLOBIN 10.3 g/dL (13.5-17.5); LYMPHOCYTES # (AUTO) 0.8 K/uL (0.8-4.8); MEAN CORPUSCULAR HEMOGLOBIN 35 PG (26.0-33.0); MEAN CORPUSCULAR HGB CONC 35 g/dl (31.0-36.0); MEAN CORPUSCULAR VOLUME 100 fL (80-96); MONOCYTES # (AUTO) 0.6 K/uL (0.1-1.30); MONOCYTES % (AUTO) 9.7 % (2.0-12.0); NEUTROPHILS # (AUTO) 4.4 K/uL (1.8-8.9); NEUTROPHILS % (AUTO) 75.1 % (43.0-81.0); PLATELET COUNT (AUTO) 186 K/uL (150-450); RED BLOOD CELL COUNT(AUTO) 2.96 MIL/uL (4.5-6.0); RED CELL DISTRIBUTION WIDTH 13.5 % (11.5-15.0); WHITE BLOOD COUNT (AUTO) 5.9 K/uL (4.3-11.0)
[2024-05-31 08:06] LABS: CALCIUM, SERUM 8.7 mg/dL (8.5-10.1); CREATININE 0.5 mg/dL (0.6-1.3); POTASSIUM 3.6 mmol/L (3.5-5.1)
[2024-05-31] MEDS ORDERED: DIPH25CA49 PO (11:05)
[2024-05-31] MEDS ORDERED: ENOX40DI SQ (11:05)
[2024-05-31] MEDS ORDERED: ALBU2.5V13 HHN (11:05)
[2024-05-31] MEDS ORDERED: LISI20TA30 PO (11:05)
[2024-05-31] MEDS ORDERED: LORA-259 PO (11:05)
[2024-05-31] MEDS ORDERED: ALBUT2 NEB (11:05)
[2024-05-31] MEDS ORDERED: LIDO30AD10 TP (11:05)
[2024-05-31] MEDS ORDERED: MAG30ORA PO (11:05)
[2024-05-31] MEDS ORDERED: ATOR40TA PO (11:05)
[2024-05-31] MEDS ORDERED: NICO-676 TD (11:05)
[2024-05-31] MEDS ORDERED: Z Guard Remedy TP (11:05)
[2024-05-31] MEDS ORDERED: MONT10TA22 PO (11:05)
[2024-05-31] MEDS ORDERED: MAGN400O6 PO (11:05)
[2024-05-31] MEDS ORDERED: ACET325T53 PO (11:05)
[2024-05-31] MEDS ORDERED: SODI100037 PO (11:05)
[2024-05-31] MEDS ORDERED: UREA57CR TP (11:05)
[2024-05-31] MEDS ORDERED: AMLO-212 PO (11:05)
[2024-05-31] MEDS ORDERED: IPRA0.2S9 NEB ×2 (11:05)
[2024-05-31] MEDS ORDERED: PRED20TA PO (11:05)
[2024-06-01] VITALS (11 sets, daily range): BP systolic 112–137; BP diastolic 56–85; TEMP 97.8–98.2; O2SAT 95–98
[2024-06-02] VITALS (10 sets, daily range): BP systolic 91–117; BP diastolic 62–71; TEMP 97.9–98.4; O2SAT 94–100
[2024-06-03] VITALS (12 sets, daily range): BP systolic 104–138; BP diastolic 41–78; TEMP 97.5–98.2; O2SAT 93–98
[2024-06-03 07:51] LABS: EOSINOPHILS % (AUTO) 0.7 % (0.0-6.0); HEMATOCRIT 28 % (39-51); HEMOGLOBIN 9.9 g/dL (13.5-17.5); LYMPHOCYTES # (AUTO) 0.8 K/uL (0.8-4.8); LYMPHOCYTES % (AUTO) 16.1 % (20.0-44.0); MEAN CORPUSCULAR HEMOGLOBIN 35 PG (26.0-33.0); MEAN CORPUSCULAR HGB CONC 36 g/dl (31.0-36.0); MEAN CORPUSCULAR VOLUME 99 fL (80-96); MONOCYTES # (AUTO) 0.8 K/uL (0.1-1.30); MONOCYTES % (AUTO) 15.6 % (2.0-12.0); NEUTROPHILS # (AUTO) 3.5 K/uL (1.8-8.9); NEUTROPHILS % (AUTO) 67.6 % (43.0-81.0); PLATELET COUNT (AUTO) 215 K/uL (150-450); RED BLOOD CELL COUNT(AUTO) 2.82 MIL/uL (4.5-6.0); RED CELL DISTRIBUTION WIDTH 13.2 % (11.5-15.0); WHITE BLOOD COUNT (AUTO) 5.2 K/uL (4.3-11.0)
[2024-06-03 07:58] LABS: CREATININE 0.5 mg/dL (0.6-1.3); POTASSIUM 3.8 mmol/L (3.5-5.1)
[2024-06-04] VITALS (11 sets, daily range): BP systolic 119–149; BP diastolic 55–75; TEMP 97.7–98.4; O2SAT 95–100
[2024-06-05] VITALS (12 sets, daily range): BP systolic 106–132; BP diastolic 54–84; TEMP 97.8–98.2; O2SAT 94–100
[2024-06-06 04:52] VITALS: BP 117/78; TEMP 98; O2SAT 94
[2024-06-06 07:30] VITALS: BP 115/71; TEMP 97.9; O2SAT 92
[2024-06-06 07:42] VITALS: O2SAT 96
[2024-06-06 07:54] VITALS: O2SAT 98
[2024-06-06 08:52] VITALS: BP 115/71
[2024-06-06] MEDS ORDERED: FLUT1DIS3 INH (11:17)
[2024-06-06] MEDS ORDERED: PRED20TA PO (11:17)
[2024-06-06] MEDS ORDERED: TIOT18CA3 INH (11:17)
[2024-06-06 12:35] VITALS: O2SAT 95
== END 2024-06-06 16:30 | disposition home health service (06) | DRG 177 ==
LOC: ER 23:54 → TELE 05-23 07:01 → MED 05-26 10:52
PROVIDERS: ADMIT Nurse Practitioner Acute Care; ATTEND Internal Medicine
DX: J15.69 Pneumonia due to other Gram-negative bacteria (principal); J96.01 Acute respiratory failure with hypoxia; J96.02 Acute respiratory failure with hypercapnia; J44.1 Chronic obstructive pulmonary disease with (acute) exacerbation; E22.2 Syndrome of inappropriate secretion of antidiuretic hormone; B86 Scabies; D72.829 Elevated white blood cell count, unspecified; E66.9 Obesity, unspecified; E78.5 Hyperlipidemia, unspecified; L29.9 Pruritus, unspecified; Z71.6 Tobacco abuse counseling; Z83.3 Family history of diabetes mellitus; F41.9 Anxiety disorder, unspecified; F17.210 Nicotine dependence, cigarettes, uncomplicated; I73.9 Peripheral vascular disease, unspecified; Z79.899 Other long term (current) drug therapy; R74.01 Elevation of levels of liver transaminase levels; Z91.199 Patient's noncompliance with other medical treatment and regimen due to unspecified reason; Z20.822 Contact with and (suspected) exposure to COVID-19; E87.70 Fluid overload, unspecified; G89.29 Other chronic pain; Z68.29 Body mass index [BMI] 29.0-29.9, adult; R73.9 Hyperglycemia, unspecified; L85.9 Epidermal thickening, unspecified; I11.0 Hypertensive heart disease with heart failure; I50.9 Heart failure, unspecified
CPT/HCPCS: 36415; 70220-TC; 71045-TC; 80048-TC; 80053-TC; 80061-TC; 80076-TC; 82533; 82728-TC; 83540-TC; 83735-TC; 83880; 83935-TC; 84100-TC; 84155; 84165; 84300-TC; 84439-TC; 84443-TC; 84484-TC; 84550-TC; 85025-TC; 92526; 92611-TC; 93307-TC; 94760-TC; 94761-TC; 94762-TC; 94799-TC; 97110-TC; 97112-TC; 97116-TC; 97530-TC; A4223; G0378; J0692; J1650; J2060; J2270; J2916; J2919; J3475; J7030; J7050; J7060; Q0163